=== PATIENT | female | born 1975 | race Caucasian/White ===

== ENCOUNTER 2017-12-12 21:02 | Emergency (ER) | payer MEDICARE, MEDICAID ==
[~2017-12-12] VITALS: Ht 180.3 cm; Wt 121.5 kg
[~2017-12-12 21:02] MED LIST: BCP PO; BLAC200C4 PO; CHOL10002 PO; FAMO-128 PO; FERR-119 PO; FISH12002 PO; GABA300C PO; HYDR-565 PO; IPRA3AMP IH; MIRT15TA PO; SUVO20TA PO; ZIPR80CA2 PO
[2017-12-12 21:20] VITALS: BP 160/106
[2017-12-12] MEDS ORDERED: DOXY100C43 PO (22:28)
[2017-12-12] MEDS ORDERED: CEPH-572 PO (22:28)
== END 2017-12-12 22:37 | disposition home or self-care (01) ==
LOC: ER 21:02
DX: Z48.01 Encounter for change or removal of surgical wound dressing (principal); L03.90 Cellulitis, unspecified; J44.9 Chronic obstructive pulmonary disease, unspecified; K21.9 Gastro-esophageal reflux disease without esophagitis; Z90.49 Acquired absence of other specified parts of digestive tract; Z98.890 Other specified postprocedural states; G89.29 Other chronic pain
CPT/HCPCS: 99283

== ENCOUNTER 2018-01-17 12:25 | Emergency (ER) | payer MEDICARE, MEDICAID ==
[~2018-01-17] VITALS: Ht 180.3 cm; Wt 120.0 kg
[2018-01-17 13:54] VITALS: BP 145/110
== END 2018-01-17 14:42 | disposition home or self-care (01) ==
LOC: ER 12:25
DX: H92.01 Otalgia, right ear (principal); J44.9 Chronic obstructive pulmonary disease, unspecified; K21.9 Gastro-esophageal reflux disease without esophagitis; G89.29 Other chronic pain; Z90.49 Acquired absence of other specified parts of digestive tract; Z79.899 Other long term (current) drug therapy
CPT/HCPCS: 99281

== ENCOUNTER 2018-02-17 10:59 | Emergency (ER) | payer OTHER, MEDICARE, MEDICAID ==
[~2018-02-17] VITALS: Ht 180.3 cm; Wt 120.5 kg
[2018-02-17] MEDS ORDERED: ketorolac tromethamine 15mg/ml inj. IM ONE (12:05)
[2018-02-17] MEDS ORDERED: diazepam 5mg tablet PO ONE (12:05)
[2018-02-17] MEDS ORDERED: METH-360 PO (12:20)
[2018-02-17] MEDS ORDERED: NAPR-56 PO (12:20)
[2018-02-17 12:23] VITALS: BP 171/111
== END 2018-02-17 12:25 | disposition home or self-care (01) ==
LOC: ER 10:59
DX: M54.5 Low back pain (principal); J44.9 Chronic obstructive pulmonary disease, unspecified; K21.9 Gastro-esophageal reflux disease without esophagitis; G89.29 Other chronic pain; G43.909 Migraine, unspecified, not intractable, without status migrainosus; Z90.49 Acquired absence of other specified parts of digestive tract; Z98.890 Other specified postprocedural states; Z79.899 Other long term (current) drug therapy; V89.2XXA Person injured in unspecified motor-vehicle accident, traffic, initial encounter; Y93.89 Activity, other specified; Y92.89 Other specified places as the place of occurrence of the external cause; Y99.8 Other external cause status
CPT/HCPCS: 96372; 99283; J1885

== ENCOUNTER 2018-12-07 07:43 | Emergency (ER) | payer MEDICARE, MEDICAID ==
[~2018-12-07] VITALS: Ht 180.3 cm; Wt 131.9 kg
[~2018-12-07 07:43] MED LIST changes: +CEPH500C5 PO; +HYDR-4353 PO; -HYDR-565 PO; -IPRA3AMP IH; +IPRA3AMP31 IH; +METH-360 PO; +ONDA4TAB12 PO
[2018-12-07] MEDS ORDERED: ondansetron/PF 4mg/2ml inj IV ONE (08:10)
[2018-12-07] MEDS ORDERED: metoclopramide 5 mg/ml inj IV ONE (08:10)
[2018-12-07] MEDS ORDERED: normal saline 1000ML IV soln IVB ONE (08:10)
[2018-12-07] MEDS ORDERED: famotidine/PF 10 mg/ml inj IV ONE (08:10)
[2018-12-07] MEDS ORDERED: LORazepam 2 mg/ml vial IV ONE (08:25)
[2018-12-07 08:30] LABS: BASOPHILS % (AUTO) 0.5 % (0-1); EOSINOPHILS % (AUTO) 0.3 % (0-6); HEMATOCRIT 40.7 % (35.0-45.0); HEMOGLOBIN 13.5 g/dl (12.0-16.0); LYMPHOCYTES % (AUTO) 22.8 % (21-51); MEAN CORPUSCULAR HEMOGLOBIN 29.8 PG (27.0-31.0); MEAN CORPUSCULAR HGB CONC 33.2 g/dL (33.0-36.5); MEAN CORPUSCULAR VOLUME 89.8 FL (78-98); MEAN PLATELET VOLUME 7.5 FL (7.4-10.4); MONOCYTES # (AUTO) 0.5 X10'3 (0-0.9); MONOCYTES % (AUTO) 5.7 % (2-12); NEUTROPHILS # (AUTO) 6.2 X10'3 (1.8-7.7); NEUTROPHILS % (AUTO) 70.7 % (42-75); PLATELET COUNT 303 X10'3 (140-440); RED BLOOD COUNT 4.53 X10'6 (4.20-5.60); RED CELL DISTRIBUTION WIDTH 13.7 % (11.5-14.5); WHITE BLOOD COUNT 8.8 X10'3 (4.5-11.0)
[2018-12-07 08:34] LABS: CLARITY,URINE SLIGHTLY CLOUDY (Clear); COLOR,URINE YELLOW (Yellow); GLUCOSE, URINE NEGATIVE (Neg); KETONES,URINE >=80 mg/dl (Neg); LEUKOCYTE ESTERASE ,URINE NEGATIVE (Neg); NITRITES, URINE NEGATIVE (Neg); OCCULT BLOOD,URINE LARGE (Neg); PROTEIN,URINE 30 mg/dl (Neg); UROBILINOGEN,URINE 0.2 E.U/dL (0.2-1.0)
[2018-12-07 08:38] LABS: UA COLLECTION TYPE CLN CATCH MIDSTREAM
[2018-12-07 08:43] LABS: URINE HCG NEGATIVE (NEG)
[2018-12-07 08:44] LABS: ALANINE AMINOTRANSFERASE 33 U/L (12-78); ALBUMIN 3.5 G/DL (3.4-5.0); ALBUMIN/GLOBULIN RATIO 0.8 (1.1-1.5); ALKALINE PHOSPHATASE 56 IU/L (46-116); ANION GAP 11 (8-16); ASPARTATE AMINO TRANSFERASE 26 U/L (10-37); BILIRUBIN,TOTAL 0.4 MG/DL (0.1-1.0); BLOOD UREA NITROGEN 9 MG/DL (7-18); BUN/CREATININE RATIO 10.1 (6.6-38.0); CALCIUM 9.1 MG/DL (8.5-10.1); CHLORIDE 102 MMOL/L (99-107); CREATININE 0.89 MG/DL (0.40-0.90); GLUCOSE 116 MG/DL (70-104); LIPASE 57 U/L (73-393); POTASSIUM 3.7 MMOL/L (3.5-5.1); SODIUM 136 MMOL/L (135-145); TOTAL CARBON DIOXIDE 23.4 MMOL/L (24-32); TOTAL PROTEIN 7.7 G/DL (6.4-8.2); eGFR 69 ML/MIN
[2018-12-07 08:47] LABS: BACTERIA,URINE 1+ /HPF (Neg); MUCUS STRANDS MODERATE /LPF (Neg); SQUAMOUS EPITHELIAL CELL,UR MODERATE /LPF (FEW); WBC,URINE 0-4 /HPF (0-4)
[2018-12-07] MEDS ORDERED: ONDA4TAB6 PO (08:58)
[2018-12-07 09:36] VITALS: BP 138/105
== END 2018-12-07 09:38 | disposition home or self-care (01) ==
LOC: ER 07:43
DX: A08.4 Viral intestinal infection, unspecified (principal); J44.9 Chronic obstructive pulmonary disease, unspecified; K21.9 Gastro-esophageal reflux disease without esophagitis; G89.29 Other chronic pain; Z90.49 Acquired absence of other specified parts of digestive tract; Z98.890 Other specified postprocedural states; Z79.2 Long term (current) use of antibiotics; Z79.899 Other long term (current) drug therapy
CPT/HCPCS: 36415; 80053; 81001; 81025; 83690; 85025; 96361; 96374; 96375; 99283; J2060; J2405; J2765; J3490; J7030

== ENCOUNTER 2018-12-22 11:03 | Emergency (ER) | payer MEDICARE, MEDICAID ==
[~2018-12-22] VITALS: Ht 180.3 cm; Wt 98.4 kg
[~2018-12-22 11:03] MED LIST changes: +ONDA4TAB6 PO
--- NOTE | 2018-12-22 13:05 | NUR ---
PATIENT REPORTS HEADACHE,DR DEL RIO OK'D FOR PATIENT TO TAKE IMITREX 100MG(HOME MED).
[2018-12-22] MEDS ORDERED: BENZ-38 PO (13:11)
[2018-12-22] MEDS ORDERED: AZIT-63 PO (13:11)
[2018-12-22] MEDS ORDERED: PRED20TA PO (13:11)
[2018-12-22] MEDS ORDERED: azithromycin 250mg tablet PO ONE (13:15)
[2018-12-22] MEDS ORDERED: predniSONE 20 mg tablet PO ONE (13:15)
[2018-12-22] MEDS ORDERED: benzonatate 100mg capsule PO ONE (13:15)
--- NOTE | 2018-12-22 13:27 | NUR ---
PT GIVEN D/C INSTRUCTIONS WITH EDUCATION, VERBAL AND WRITTEN. PT VERBALIZED UNDERSTANDING. RX EDUCATION PROVIDED. WITH EDUCATION FOR FOLLOW UP.
[2018-12-22 13:30] VITALS: BP 156/86
== END 2018-12-22 13:31 | disposition home or self-care (01) ==
LOC: ER 11:03
DX: J40 Bronchitis, not specified as acute or chronic (principal); J44.9 Chronic obstructive pulmonary disease, unspecified; G43.909 Migraine, unspecified, not intractable, without status migrainosus; K21.9 Gastro-esophageal reflux disease without esophagitis; G89.29 Other chronic pain; Z90.49 Acquired absence of other specified parts of digestive tract; Z98.890 Other specified postprocedural states; Z79.899 Other long term (current) drug therapy
CPT/HCPCS: 71046; 99284; J7512

== ENCOUNTER 2019-09-17 10:25 | Emergency (ER) | payer MEDICARE, MEDICAID ==
[~2019-09-17] VITALS: Ht 180.3 cm; Wt 128.0 kg
[~2019-09-17 10:25] MED LIST changes: +CYCL-1 PO
[2019-09-17 10:43] VITALS: BP 150/99
[2019-09-17] MEDS ORDERED: OXYC-150 PO (13:24)
[2019-09-17] MEDS ORDERED: ondansetron 4mg rapidly disintigrating tab PO ONE (13:30)
[2019-09-17] MEDS ORDERED: ketorolac trometh inj. 60 MG/2 ML VIAL IM ONE (13:30)
[2019-09-17 14:05] LABS: CLARITY,URINE CLOUDY (Clear); COLOR,URINE YELLOW (Yellow); GLUCOSE, URINE NEGATIVE (Neg); KETONES,URINE NEGATIVE (Neg); LEUKOCYTE ESTERASE ,URINE NEGATIVE (Neg); NITRITES, URINE POSITIVE (Neg); OCCULT BLOOD,URINE SMALL (Neg); PROTEIN,URINE TRACE mg/dl (Neg); UA COLLECTION TYPE CLN CATCH MIDSTREAM; UROBILINOGEN,URINE 0.2 E.U/dL (0.2-1.0)
[2019-09-17 14:06] LABS: URINE HCG NEGATIVE (NEG)
[2019-09-17 14:11] LABS: BACTERIA,URINE 4+ /HPF (Neg); MUCUS STRANDS MODERATE /LPF (Neg); SQUAMOUS EPITHELIAL CELL,UR MODERATE /LPF (FEW); WBC CLUMPS,URINE FEW /HPF (NEGATIVE)
[2019-09-17] MEDS ORDERED: CEPH500C5 PO ×2 (14:18→14:22)
== END 2019-09-17 14:32 | disposition home or self-care (01) ==
LOC: ER 10:26
DX: N39.0 Urinary tract infection, site not specified (principal); N93.9 Abnormal uterine and vaginal bleeding, unspecified; J44.9 Chronic obstructive pulmonary disease, unspecified; K21.9 Gastro-esophageal reflux disease without esophagitis; G89.29 Other chronic pain; F41.9 Anxiety disorder, unspecified; Z90.49 Acquired absence of other specified parts of digestive tract; Z98.890 Other specified postprocedural states; Z79.2 Long term (current) use of antibiotics; Z79.899 Other long term (current) drug therapy
CPT/HCPCS: 81001; 81025; 87077; 87088; 87186; 96372; 99283; J1885

== ENCOUNTER 2019-10-20 09:59 | Observation (INO) | payer MEDICARE, MEDICAID ==
[2019-10-17 12:19] LABS: BASOPHILS % (AUTO) 0.3 % (0-1); EOSINOPHILS # (AUTO) 0.1 X10'3 (0-0.9); EOSINOPHILS % (AUTO) 0.7 % (0-6); LYMPHOCYTES % (AUTO) 25.9 % (21-51); MEAN CORPUSCULAR HEMOGLOBIN 30.7 PG (27.0-31.0); MEAN CORPUSCULAR HGB CONC 33.9 g/dL (33.0-36.5); MEAN CORPUSCULAR VOLUME 90.7 FL (78-98); MEAN PLATELET VOLUME 7.4 FL (7.4-10.4); MONOCYTES # (AUTO) 0.5 X10'3 (0-0.9); MONOCYTES % (AUTO) 5.8 % (2-12); NEUTROPHILS # (AUTO) 5.3 X10'3 (1.8-7.7); NEUTROPHILS % (AUTO) 67.3 % (42-75); PRE OP HEMATOCRIT 39.1 % (35.0-45.0); PRE OP HEMOGLOBIN 13.2 g/dL (12.0-16.0); PRE OP PLATELET COUNT 286 X10'3 (140-440); RED BLOOD COUNT 4.31 X10'6 (4.20-5.60); RED CELL DISTRIBUTION WIDTH 13.1 % (11.5-14.5)
[2019-10-17 12:53] LABS: ALBUMIN 3.3 G/DL (3.4-5.0); ALKALINE PHOSPHATASE 69 IU/L (46-116); BLOOD UREA NITROGEN 11 MG/DL (7-18); BUN/CREATININE RATIO 12.5 (6.6-38.0); CALCIUM 8.3 MG/DL (8.5-10.1); CHLORIDE 104 MMOL/L (99-107); CREATININE 0.88 MG/DL (0.40-0.90); PRE OP ALT 30 U/L (30-65); PRE OP ANION GAP 9 (8-16); PRE OP AST 18 U/L (10-37); PRE OP BILIRUB, TOTAL 0.2 MG/DL (0.0-1.0); PRE OP GLUCOSE 108 MG/DL (70-104); PRE OP POTASSIUM 4.4 MMOL/L (3.4-5.1); PRE OP SODIUM 139 MMOL/L (135-145); TOTAL CARBON DIOXIDE 25.9 MMOL/L (24-32); eGFR 69 ML/MIN
[2019-10-17 13:12] LABS: HCG SERUM QL NEGATIVE
[2019-10-17 13:26] LABS: ALBUMIN/GLOBULIN RATIO 0.9 (1.1-1.5); TOTAL PROTEIN 7.1 G/DL (6.4-8.2)
[~2019-10-20] VITALS: Ht 180.3 cm; Wt 127.9 kg
[2019-10-20] VITALS (18 sets, daily range): BP systolic 126–162; BP diastolic 62–87
[2019-10-20] MEDS: ringers solution, lacted 1,000 ML IV SCH ×4 (05:00→19:48)
[~2019-10-20 09:59] MED LIST changes: -BLAC200C4 PO; -CEPH500C5 PO; -CHOL10002 PO; -CYCL-1 PO; +ESZO3TAB66 PO; -FAMO-128 PO; -FERR-119 PO; -FISH12002 PO; -HYDR-4353 PO; -IPRA3AMP31 IH; +MELA3TAB64 PO; -METH-360 PO; -ONDA4TAB12 PO; -ONDA4TAB6 PO; +PRAZ1CAP5 PO; +RANI150T8 PO; -SUVO20TA PO; +TRAZ-256 PO; +ceFOXitin 2 GM ADDvantage bag 100 ML IV ONE; +famotidine 10mg tablet PO ONE
[2019-10-20] MEDS ORDERED: fentaNYL/PF 50MCG/1 ML 2ML syringe ONE ×2 (12:09→15:06)
[2019-10-20] MEDS ORDERED: midazolam 2 mg/2 ml injection ONE (12:09)
[2019-10-20] MEDS ORDERED: rocuronium 10mg/ml inj IV ONE ×2 (12:09→14:02)
[2019-10-20] MEDS ORDERED: ringers solution, lacted 1,000 ML IV SCH (12:12)
[2019-10-20] MEDS ORDERED: morphine 4 MG/ML inj SYRINge IV PRN ×2 (12:15)
[2019-10-20] MEDS ORDERED: hydrALAZINE 20mg/ml inj. IV PRN (12:15)
[2019-10-20] MEDS ORDERED: fentaNYL/PF 50MCG/1 ML 2ML syringe IV PRN ×2 (12:15)
[2019-10-20] MEDS ORDERED: labetalol 20mg/4ml (5mg/ml) syringe IV PRN (12:15)
[2019-10-20] MEDS ORDERED: ondansetron/PF 4mg/2ml inj IV PRN ×2 (12:15→16:20)
[2019-10-20] MEDS ORDERED: LIDOcaine 1% W/epiNEPHrine 1:100,000 20ml vial ONE (12:16)
[2019-10-20] MEDS ORDERED: BUPIVAcaine 0.5% inj/PF 30 ML ONE (12:16)
[2019-10-20] MEDS ORDERED: glycopyrrolate 0.2mg/ml inj ONE (12:43)
[2019-10-20] MEDS ORDERED: sevoflurane 250ml liquid IH ONE (12:43)
[2019-10-20] MEDS ORDERED: neostigmine methylsulfate 1 MG/ML 10ml vial ONE (12:43)
[2019-10-20] MEDS ORDERED: dexamethasone sod phosphate 4mg/ml inj. ONE (13:28)
[2019-10-20] MEDS ORDERED: propofol inj 20 ML IV ONE (13:28)
[2019-10-20] MEDS ORDERED: LIDOcaine 2% (20mg/ml) 5ml vial ONE (13:28)
[2019-10-20] MEDS ORDERED: ondansetron/PF 4mg/2ml inj ONE (13:29)
[2019-10-20] MEDS ORDERED: hydrALAZINE 20mg/ml inj. IV ONE ×2 (13:59→14:24)
[2019-10-20] MEDS ORDERED: BUPIVAcaine 0.5% inj/PF 30 ml vial IJ ONE (14:02)
[2019-10-20] MEDS ORDERED: phenylephrine 10mg/ml inj. ONE ×2 (14:20→15:32)
[2019-10-20] MEDS ORDERED: labetalol 20mg/4ml (5mg/ml) syringe IV ONE ×2 (15:00)
[2019-10-20] MEDS ORDERED: fluoroscein sod 10% (100mg/ml) 5ml vial ONE (15:09)
--- NOTE | 2019-10-20 16:05 | NUR ---
Received from OR via , accompanied by Anesthesiologist [email or web address] and report given by Anesthesiolgist. AWAKE VS WNL, NO CO PAIN DSG DI, ROSENTHAL SECURED WITH CO SARA JARAMILLO URINE. SCDS ON.
[2019-10-20] MEDS ORDERED: CADD PCA waste documentation MC PRN (16:20)
[2019-10-20] MEDS ORDERED: ketorolac trometh. 30mg/ml inj. IV PRN (16:20)
[2019-10-20] MEDS ORDERED: mag hydrox/Alum hydrox/simeth 30ml oral suspension PO PRN (16:20)
[2019-10-20] MEDS ORDERED: oxyCODONE/APAP 5-325mg tablet PO PRN ×2 (16:20)
[2019-10-20] MEDS ORDERED: diphenhydrAMINE 50 mg/ml inj IV PRN (16:20)
[2019-10-20] MEDS ORDERED: temazepam 15mg capsule PO PRN (16:20)
[2019-10-20] MEDS ORDERED: LORazepam 2 mg/ml vial IV PRN (16:20)
[2019-10-20] MEDS ORDERED: normal saline 500ml IV soln 500 ML IV PRN (16:20)
[2019-10-20] MEDS ORDERED: naloxone 0.4 mg/ml inj IV PRN (16:20)
[2019-10-20] MEDS: HYDROmorphone/NS 1 mg/ml CADD 50 ML IV SCH ×5 (16:58→23:00)
--- NOTE | 2019-10-20 17:10 | NUR ---
Patient in room [facility]. I have received report from Angle FLORES and had the opportunity to ask questions and assume patient care.
--- NOTE | 2019-10-20 17:25 | NUR ---
Report called to receiving nurse. Transferred via BED Belongings . Special Issues communicated to receiving nurse.AWAKE VS WNL, PAIN DECREASAED AFTER IV MEDS. NAUSEA DECREASED. SCDS CONT, ROSENTHAL WITH CLEAR YELLOW URINE QS, KNOWS HOW TO USE CADD. TO ROOM 355A
--- NOTE | 2019-10-20 17:30 | NUR ---
patient arrived on the floor from recovery, patient mad familiar with wound, lap sites assessed. patient educated on cadd and usage. Patient was given water at this time and ice as well. Patient hooked to vitals at this time and being monitored.
--- NOTE | 2019-10-20 18:46 | NUR ---
Problems reprioritized. Patient report given, questions answered & plan of care reviewed with Darcie FLORES.
--- NOTE | 2019-10-20 18:50 | NUR ---
Patient in room [facility]. I have received report from RUSSELL FLORES and had the opportunity to ask questions and assume patient care.
[2019-10-20] MEDS: simethicone 80mg chew tab PO SCH (18:54)
[2019-10-20] MEDS: docusate sod 100mg capsule PO SCH (19:56)
[2019-10-20] MEDS ORDERED: Melatonin 3mg tablet PO SCH (23:40)
[2019-10-20] MEDS ORDERED: mirtazapine 15mg tablet PO SCH (23:40)
[2019-10-20] MEDS ORDERED: traZODone 50mg tablet PO SCH (23:40)
[2019-10-21] VITALS: BP 142/79
[2019-10-21] MEDS: HYDROmorphone/NS 1 mg/ml CADD 50 ML IV SCH ×4 (01:00→07:00)
[2019-10-21] MEDS: ringers solution, lacted 1,000 ML IV SCH (03:55)
[2019-10-21 06:11] LABS: BASOPHILS % (AUTO) 0.2 % (0-1); EOSINOPHILS % (AUTO) 0 % (0-6); HEMATOCRIT 32.7 % (35.0-45.0); HEMOGLOBIN 11.1 g/dl (12.0-16.0); LYMPHOCYTES # (AUTO) 1.4 X10'3 (1.1-4.8); LYMPHOCYTES % (AUTO) 13.2 % (21-51); MEAN CORPUSCULAR HEMOGLOBIN 30.9 PG (27.0-31.0); MEAN CORPUSCULAR VOLUME 90.8 FL (78-98); MEAN PLATELET VOLUME 7.4 FL (7.4-10.4); MONOCYTES # (AUTO) 0.7 X10'3 (0-0.9); NEUTROPHILS # (AUTO) 8.7 X10'3 (1.8-7.7); NEUTROPHILS % (AUTO) 80.6 % (42-75); PLATELET COUNT 263 X10'3 (140-440); RED BLOOD COUNT 3.61 X10'6 (4.20-5.60); RED CELL DISTRIBUTION WIDTH 13.1 % (11.5-14.5); WHITE BLOOD COUNT 10.8 X10'3 (4.5-11.0)
--- NOTE | 2019-10-21 06:30 | NUR ---
Problems reprioritized. Patient report given, questions answered & plan of care reviewed with JARVIS FLORES.
[2019-10-21 06:32] LABS: ANION GAP 11 (8-16); BLOOD UREA NITROGEN 9 MG/DL (7-18); BUN/CREATININE RATIO 10.7 (6.6-38.0); CALCIUM 8.1 MG/DL (8.5-10.1); CHLORIDE 103 MMOL/L (99-107); CREATININE 0.84 MG/DL (0.40-0.90); GLUCOSE 123 MG/DL (70-104); POTASSIUM 4.2 MMOL/L (3.5-5.1); SODIUM 137 MMOL/L (135-145); TOTAL CARBON DIOXIDE 23.3 MMOL/L (24-32); eGFR 73 ML/MIN
--- NOTE | 2019-10-21 07:34 | NUR ---
PT. VOIDED 100ML. BLADDER SCANNED 392ML. EXPORT AGENT DENISHA MADE AWARE. PT. ENCOURAGED TO AMBULATE.
[2019-10-21 07:35] VITALS: BP 151/78
[2019-10-21] MEDS: simethicone 80mg chew tab PO SCH (08:38)
[2019-10-21] MEDS: docusate sod 100mg capsule PO SCH (08:38)
--- NOTE | 2019-10-21 11:27 | NUR ---
Pt. has been voiding 100-200ml each time, post void residual 556ml. Called TENA Garcia. Awaiting response.
--- NOTE | 2019-10-21 11:46 | NUR ---
Witt reinserted per MD Peterson's order. 800ml pale urine output in F/C.
--- NOTE | 2019-10-21 12:00 | NUR ---
PT. DISCHARGED IN A STABLE CONDITION. LAP SHOWED NO S/SX BLEEDING OR INFECTION. PT. HAS SCANT BLOOD ON JANEL PAD FROM LAST 4 HOURS. ROSENTHAL CATHETER INSERTED R/T RETENTION, PT. WELL EDUCATED ON INFECTION PREVENTION AND HOW TO CHANGE HER LEG BAG TO A NIGHT ROSENTHAL BAG, AND HOW TO EMPTY LEG BAG WELL. PT. HAD THE OPPORTUNITY TO ASK QUESTIONS AND RECEIVE ANSWERS. REVIEWED DISCHARGE INSTRUCTIONS FROM MD, MEDICATIONS, AND FOLLOW UP INSTRUCTIONS. PT HAS PAIN MEDICATION AT HOME ALREADY. SHE IS AWARE OF WARNING SIGNS AND REASONS TO CALL THE MD.
[2019-10-21] MEDS ORDERED: mirtazapine 15mg tablet PO SCH (21:00)
[2019-10-21] MEDS ORDERED: Melatonin 3mg tablet PO SCH (21:00)
[2019-10-21] MEDS ORDERED: traZODone 50mg tablet PO SCH (21:00)
--- NOTE | 2019-10-25 09:31 | NUR ---
Case management DC follow up: spoke to pt via telephone. Reported still having some bleeding/uses a mariah, changes x2 daily. pt is afebrile, Denies excess bleeding, dizziness, SOB/resp distress, cp/discomfort, increased pain/unmanageable, leg swelling. pt verbalizes understanding of s/s and when to call emergency services. pt has constipation, had a small BM today, 10/25/19, will continue miralax once daily until has routine. pt has appt w/Dr Peterson tomorrow 10/26/19 to remove FC. All needs met, questions answered at DC. pt verbalizes understanding of meds & why prescribed. No further questions at this time
== END 2019-10-21 14:45 | disposition home or self-care (01) ==
LOC: PAS 09:59 → SUR 3N 16:16
PROVIDERS: ADMIT Obstetrics & Gynecology; ATTEND Obstetrics & Gynecology
DX: N81.4 Uterovaginal prolapse, unspecified (principal); D25.9 Leiomyoma of uterus, unspecified; N92.0 Excessive and frequent menstruation with regular cycle; N81.11 Cystocele, midline; N81.6 Rectocele; N94.4 Primary dysmenorrhea
CPT/HCPCS: 36415; 57230; 58552; 80048; 80053; 82948; 84703; 85025; 86885; 86900; 86901; 87081; 93005; 96365; 96366; 96375; 96376; C1758; G0378; J0360; J0694; J1100; J1170; J1200; J2001; J2250; J2370; J2405; J2704; J2710; J3010; J7040; J7120; A4355; A4618; A6250; A7000; J3490

== ENCOUNTER 2020-08-06 08:57 | Emergency (ER) | payer BC, MEDICAID ==
[~2020-08-06] VITALS: Ht 180.3 cm; Wt 120.0 kg
[~2020-08-06 08:57] MED LIST changes: +MELA3TAB39 PO; -MELA3TAB64 PO; -ceFOXitin 2 GM ADDvantage bag 100 ML IV ONE; -famotidine 10mg tablet PO ONE
[2020-08-06 11:10] VITALS: BP 188/116
== END 2020-08-06 11:13 | disposition home or self-care (01) ==
LOC: ER 08:57
DX: R22.41 Localized swelling, mass and lump, right lower limb (principal); G43.909 Migraine, unspecified, not intractable, without status migrainosus; J44.9 Chronic obstructive pulmonary disease, unspecified; K21.9 Gastro-esophageal reflux disease without esophagitis; G89.29 Other chronic pain; Z90.49 Acquired absence of other specified parts of digestive tract; Z98.890 Other specified postprocedural states; Z79.899 Other long term (current) drug therapy
CPT/HCPCS: 73610; 73630; 99284

== ENCOUNTER 2020-10-12 11:11 | Emergency (ER) | payer BC, MEDICAID ==
[~2020-10-12] VITALS: Ht 180.3 cm; Wt 121.8 kg
[~2020-10-12 11:11] MED LIST changes: +MIRT-116 PO; -MIRT15TA PO
[2020-10-12 11:21] VITALS: BP 171/110
[2020-10-12] MEDS ORDERED: ketorolac tromethamine 15mg/ml inj. IM ONE (12:55)
[2020-10-12] MEDS ORDERED: diphenhydrAMINE 50 mg/ml inj IM ONE (13:50)
[2020-10-12] MEDS ORDERED: proCHLORperazine 10 MG/2 ml inj IM ONE (13:50)
== END 2020-10-12 16:19 | disposition home or self-care (01) ==
LOC: ER 11:13
DX: M51.26 Other intervertebral disc displacement, lumbar region (principal); M54.5 Low back pain; R19.7 Diarrhea, unspecified; R20.0 Anesthesia of skin; G43.909 Migraine, unspecified, not intractable, without status migrainosus; J44.9 Chronic obstructive pulmonary disease, unspecified; K21.9 Gastro-esophageal reflux disease without esophagitis; G89.29 Other chronic pain; F41.9 Anxiety disorder, unspecified; Z87.01 Personal history of pneumonia (recurrent); Z90.49 Acquired absence of other specified parts of digestive tract; Z98.890 Other specified postprocedural states; Z79.899 Other long term (current) drug therapy
CPT/HCPCS: 72148; 96372; 99284; J1885

== ENCOUNTER 2021-11-01 19:00 | Emergency (ER) | payer BC, MEDICAID ==
[~2021-11-01] VITALS: Ht 180.3 cm; Wt 118.2 kg
[2021-11-01 19:55] VITALS: BP 144/92
[2021-11-01] MEDS ORDERED: HYDROcodone/acetaminophen 10/325mg tab PO STA (20:02)
[2021-11-01] MEDS ORDERED: ketorolac trometh inj. 60 MG/2 ML VIAL IM ONE (20:35)
== END 2021-11-01 23:19 | disposition home or self-care (01) ==
LOC: ER 19:01
DX: S82.831A Other fracture of upper and lower end of right fibula, initial encounter for closed fracture (principal); G43.909 Migraine, unspecified, not intractable, without status migrainosus; J44.9 Chronic obstructive pulmonary disease, unspecified; K21.9 Gastro-esophageal reflux disease without esophagitis; G89.29 Other chronic pain; Z87.01 Personal history of pneumonia (recurrent); Z90.49 Acquired absence of other specified parts of digestive tract; Z79.899 Other long term (current) drug therapy; W01.0XXA Fall on same level from slipping, tripping and stumbling without subsequent striking against object, initial encounter; Y93.89 Activity, other specified; Y92.098 Other place in other non-institutional residence as the place of occurrence of the external cause; Y99.8 Other external cause status
CPT/HCPCS: 29515; 73610; 96372; 99284; J1885

== ENCOUNTER 2022-06-21 18:10 | Emergency (ER) | payer BC, MEDICAID ==
[~2022-06-21] VITALS: Ht 180.3 cm; Wt 118.0 kg
[2022-06-21 18:22] VITALS: BP 162/104
[2022-06-21] MEDS ORDERED: ketorolac trometh. 30mg/ml inj. IM ONE (19:20)
== END 2022-06-21 21:51 | disposition home or self-care (01) ==
LOC: ER 18:11
DX: J06.9 Acute upper respiratory infection, unspecified (principal); R05.9 Cough, unspecified; G43.909 Migraine, unspecified, not intractable, without status migrainosus; J44.9 Chronic obstructive pulmonary disease, unspecified; K21.9 Gastro-esophageal reflux disease without esophagitis; G89.29 Other chronic pain; F41.9 Anxiety disorder, unspecified; Z87.01 Personal history of pneumonia (recurrent); Z90.49 Acquired absence of other specified parts of digestive tract; Z98.890 Other specified postprocedural states; Z79.899 Other long term (current) drug therapy
CPT/HCPCS: 87502; 87503; 96372; 99283; J1885

== ENCOUNTER 2022-09-12 08:30 | Emergency (ER) | payer BC, MEDICAID ==
[~2022-09-12] VITALS: Ht 180.3 cm; Wt 126.4 kg
[2022-09-12 08:32] VITALS: BP 144/81
[2022-09-12] MEDS ORDERED: dexamethasone sod phosphate 10mg/ml inj IM STA (10:38)
[2022-09-12] MEDS ORDERED: diazepam 5mg tablet PO ONE (11:15)
== END 2022-09-12 12:57 | disposition home or self-care (01) ==
LOC: ER 08:30
DX: M54.2 Cervicalgia (principal); M54.50 Low back pain, unspecified; G89.29 Other chronic pain; G43.909 Migraine, unspecified, not intractable, without status migrainosus; J44.9 Chronic obstructive pulmonary disease, unspecified; K21.9 Gastro-esophageal reflux disease without esophagitis; F41.9 Anxiety disorder, unspecified; Z87.01 Personal history of pneumonia (recurrent); Z90.49 Acquired absence of other specified parts of digestive tract; Z98.890 Other specified postprocedural states; Z79.899 Other long term (current) drug therapy
CPT/HCPCS: 72040; 72100; 96372; 99284; J1100

== ENCOUNTER 2022-11-28 16:10 | Emergency (ER) | payer BC, MEDICAID ==
[~2022-11-28] VITALS: Ht 180.3 cm; Wt 127.0 kg
[2022-11-28 16:25] VITALS: BP 176/107
[2022-11-28] MEDS ORDERED: METR-159 PO (19:40)
== END 2022-11-28 19:58 | disposition home or self-care (01) ==
LOC: ER 16:11
DX: I73.89 Other specified peripheral vascular diseases (principal); N76.0 Acute vaginitis; J44.9 Chronic obstructive pulmonary disease, unspecified; K21.9 Gastro-esophageal reflux disease without esophagitis; G89.29 Other chronic pain; M54.9 Dorsalgia, unspecified; G43.909 Migraine, unspecified, not intractable, without status migrainosus; F41.9 Anxiety disorder, unspecified; Z98.890 Other specified postprocedural states; Z79.899 Other long term (current) drug therapy; Z79.1 Long term (current) use of non-steroidal anti-inflammatories (NSAID); Z79.2 Long term (current) use of antibiotics
CPT/HCPCS: 99283

== ENCOUNTER 2023-06-19 08:11 | Emergency (ER) | payer BC, MEDICAID ==
[~2023-06-19] VITALS: Ht 180.3 cm; Wt 140.0 kg
[~2023-06-19 08:11] MED LIST changes: -MIRT-116 PO; +MIRT-142 PO
[2023-06-19 08:16] VITALS: BP 152/105; PULSE 68; RESP 18; TEMP 97.8; O2SAT 94
[2023-06-19] MEDS ORDERED: METH4TAB81 PO (10:24)
== END 2023-06-19 11:04 | disposition home or self-care (01) ==
LOC: ER 08:12
DX: R52 Pain, unspecified (principal); G43.909 Migraine, unspecified, not intractable, without status migrainosus; J44.9 Chronic obstructive pulmonary disease, unspecified; K21.9 Gastro-esophageal reflux disease without esophagitis; Z79.899 Other long term (current) drug therapy
CPT/HCPCS: 99283

== ENCOUNTER 2023-10-01 14:24 | Emergency (ER) | payer BC, MEDICAID ==
[~2023-10-01] VITALS: Ht 180.3 cm; Wt 129.4 kg
[~2023-10-01 14:24] MED LIST changes: +METH4TAB81 PO
[2023-10-01 17:46] LABS: BASOPHILS % (AUTO) 0.5 % (0-1); EOSINOPHILS # (AUTO) 0.1 X10'3 (0-0.9); EOSINOPHILS % (AUTO) 0.8 % (0-6); HEMATOCRIT 39.4 % (35.0-45.0); HEMOGLOBIN 13.3 g/dl (12.0-16.0); LYMPHOCYTES # (AUTO) 2.6 X10'3 (1.1-4.8); LYMPHOCYTES % (AUTO) 33.6 % (21-51); MEAN CORPUSCULAR HEMOGLOBIN 31.5 PG (27.0-31.0); MEAN CORPUSCULAR HGB CONC 33.7 g/dL (33.0-36.5); MEAN CORPUSCULAR VOLUME 93.4 FL (78-98); MEAN PLATELET VOLUME 6.9 FL (7.4-10.4); MONOCYTES # (AUTO) 0.5 X10'3 (0-0.9); MONOCYTES % (AUTO) 6.4 % (2-12); NEUTROPHILS # (AUTO) 4.5 X10'3 (1.8-7.7); NEUTROPHILS % (AUTO) 58.7 % (42-75); PLATELET COUNT 260 X10'3 (140-440); RED BLOOD COUNT 4.22 X10'6 (4.20-5.60); WHITE BLOOD COUNT 7.6 X10'3 (4.5-11.0)
[2023-10-01 18:16] LABS: ALANINE AMINOTRANSFERASE 36 U/L (12-78); ALBUMIN 3.6 G/DL (3.4-5.0); ALKALINE PHOSPHATASE 73 IU/L (46-116); ANION GAP 9 (8-16); ASPARTATE AMINO TRANSFERASE 16 U/L (10-37); BILIRUBIN,TOTAL 0.3 MG/DL (0.1-1.0); BLOOD UREA NITROGEN 11 MG/DL (7-18); BUN/CREATININE RATIO 13.8 (10.0-20.0); CALCIUM 8.7 MG/DL (8.5-10.1); CHLORIDE 103 MMOL/L (99-107); GLUCOSE 97 MG/DL (70-104); POTASSIUM 3.8 MMOL/L (3.5-5.1); SODIUM 137 MMOL/L (135-145); TOTAL CARBON DIOXIDE 25.5 MMOL/L (24-32); TOTAL PROTEIN 7.3 G/DL (6.4-8.2); eCRCL 95 ML/MIN; eGFR 76 ML/MIN
[2023-10-01 18:23] LABS: PRO BRAIN NATRIURETIC PEPTIDE 62 PG/ML (0-125)
[2023-10-01 18:40] VITALS: BP 149/86; PULSE 93; RESP 18; TEMP 98.1; O2SAT 98
== END 2023-10-01 18:44 | disposition home or self-care (01) ==
LOC: ER 14:25
DX: M75.01 Adhesive capsulitis of right shoulder (principal); R07.89 Other chest pain; M25.561 Pain in right knee; G43.909 Migraine, unspecified, not intractable, without status migrainosus; G89.29 Other chronic pain; J44.9 Chronic obstructive pulmonary disease, unspecified; Z79.899 Other long term (current) drug therapy
CPT/HCPCS: 36415; 71045; 73030; 73564; 80053; 83880; 84484; 85025; 93005; 99285

== ENCOUNTER 2024-01-07 09:26 | Emergency (ER) | payer MEDICARE, MEDICAID ==
[~2024-01-07] VITALS: Ht 180.3 cm; Wt 101.7 kg
[2024-01-07 10:27] LABS: D-DIMER 1.57 MG/L FEU (0-0.50)
[2024-01-07 11:44] VITALS: BP 124/61; PULSE 68; RESP 16; TEMP 97.6; O2SAT 96
== END 2024-01-07 11:47 | disposition home or self-care (01) ==
LOC: ER 09:27
DX: M25.561 Pain in right knee (principal); I83.891 Varicose veins of right lower extremity with other complications; K21.9 Gastro-esophageal reflux disease without esophagitis; G89.29 Other chronic pain; G43.909 Migraine, unspecified, not intractable, without status migrainosus; J44.9 Chronic obstructive pulmonary disease, unspecified; Z90.49 Acquired absence of other specified parts of digestive tract; Z90.710 Acquired absence of both cervix and uterus; F41.9 Anxiety disorder, unspecified
CPT/HCPCS: 36415; 85379; 93971; 99284

== ENCOUNTER 2024-09-08 16:49 | Emergency (ER) | payer MEDICARE, MEDICAID ==
[~2024-09-08] VITALS: Ht 180.3 cm; Wt 127.8 kg
[2024-09-08 16:50] VITALS: BP 167/110; PULSE 84; RESP 16; TEMP 98.3; O2SAT 96
[2024-09-08] MEDS ORDERED: LIDO700A32 TD (17:59)
[2024-09-09] MEDS ORDERED: LIDOcaine 5% patch TP SCH (08:00)
== END 2024-09-08 18:07 | disposition home or self-care (01) ==
LOC: ER 16:49
DX: S46.911A Strain of unspecified muscle, fascia and tendon at shoulder and upper arm level, right arm, initial encounter (principal); F41.9 Anxiety disorder, unspecified; J44.9 Chronic obstructive pulmonary disease, unspecified; K21.9 Gastro-esophageal reflux disease without esophagitis; G43.909 Migraine, unspecified, not intractable, without status migrainosus; Z90.49 Acquired absence of other specified parts of digestive tract; Z90.710 Acquired absence of both cervix and uterus; Z98.890 Other specified postprocedural states; X58.XXXA Exposure to other specified factors, initial encounter; Y93.89 Activity, other specified; Y92.89 Other specified places as the place of occurrence of the external cause; Y99.8 Other external cause status
CPT/HCPCS: 76881; 99284